=== PATIENT | female | born 1990 | race Caucasian/White ===

== ENCOUNTER 2023-02-27 15:51 | Outpatient (CLI) | payer BC, OTHER ==
--- NOTE | 2023-02-27 17:34 | Ultrasound Report ---
PROCEDURE: Pelvic w/Transvaginal INDICATIONS: PELVIC PAIN TECHNIQUE: Real-time scanning was performed of the pelvic organs, with image documentation. Additional endovagi nal scanning was necessary due to incomplete visualization of the adnexal and endometrial structures by transabdominal scanning. COMPARISON: None. FINDINGS: Uterus: Uterus is anteverted and normal in size at 7.9 x 3.8 x 5.9 cm. The myometrium is homogeneou s. The endometrium measures 13.3 mm in combined thickness. Ovaries: The right ovary measures 5.4 x 3.2 x 3.3 cm, with a calculated ovarian volume of 29.9 cc. The left ovary measures 3.4 x 2.2 x 2.8 cm, with a calculated ovarian volume of 10.8 cc. The ovaries have a normal sonographic appearance. Less than 12 follicles can be seen in each ovary. No adnexal masses are seen. A complex cyst is visualized within the right ovary with a reticular internal patte rn which measures 4.4 x 3.2 x 3.4 cm. A crenulated appearing cyst is present within the right ovary w hich measures 2.0 x 2.0 x 2.1 cm. Other: No pathologic free abdominal or pelvic fluid. IMPRESSION: 1. Probable right hemorrhagic cyst versus endometrioma. 6-12 week sonographic follow-up recommended t o ensure resolution of this finding. Reviewed by: Vivian Rodriguez MD on 02/27/2023 5:32 PM PDT Approved by: Vivian Rodriguez MD on 02/27/2023 5:32 PM PDT Station ID: [id number]
== END 2023-02-27 15:52 | disposition home or self-care (01) ==
LOC: DI 15:51
PROVIDERS: ATTEND Nurse Practitioner Women's Health
DX: R10.2 Pelvic and perineal pain (principal)